=== PATIENT | female | born 1995 | race Caucasian/White ===

== ENCOUNTER 2020-06-26 09:36 | Outpatient (CLI) | payer OTHER | END 2020-06-26 09:37 | disposition home or self-care (01) | LOC: COV 09:36 | PROVIDERS: ATTEND Family Medicine | DX: R05 Cough (principal); R53.83 Other fatigue; J02.9 Acute pharyngitis, unspecified; R43.9 Unspecified disturbances of smell and taste; R09.81 Nasal congestion; Z20.828 Contact with and (suspected) exposure to other viral communicable diseases ==

== ENCOUNTER 2020-08-25 13:30 | Outpatient (CLI) | payer OTHER ==
--- NOTE | 2020-08-25 11:44 | XRAY Report ---
PROCEDURE: Knee 4 View BILAT INDICATIONS: KNEE JOINT INSTABILITY TECHNIQUE: 4 views of the bilateral knee(s) were acquired. COMPARISON: None. FINDINGS: Bones: No fractures or dislocations. No suspicious bony lesions. Mild bilateral medial femoral tib ial compartment osteoarthritic changes are seen with joint space narrowing and subchondral sclerosis. Soft tissues: No joint effusion. No suspicious soft tissue calcifications. 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 No fracture or dislocat ion. No joint effusion. Reviewed by: Sachin Henry MD on 08/25/2020 11:42 AM PST Approved by: Sachin Henry MD on 08/25/2020 11:42 AM PST Station ID: [id number]
== END 2020-08-25 23:59 | disposition home or self-care (01) ==
LOC: DI.N 13:30
PROVIDERS: ATTEND Physician Assistant
DX: M25.369 Other instability, unspecified knee (principal); M17.0 Bilateral primary osteoarthritis of knee